=== PATIENT | female | born 1965 | race Asian ===

== ENCOUNTER 2016-07-28 13:43 | Emergency (ER) | payer OTHER ==
[~2016-07-28] VITALS: Ht 154.9 cm; Wt 63.6 kg
[2016-07-28] MEDS ORDERED: ATOR10TA84 PO (14:03)
[2016-07-28] MEDS ORDERED: GLIP5 PO (14:03)
[2016-07-28] MEDS ORDERED: METF500T4 PO (14:03)
[2016-07-28 14:26] LABS: BASOPHILS % (AUTO) 0.5 % (0.0-2.0); EOSINOPHILS % (AUTO) 2.1 % (1.0-6.0); HEMATOCRIT 39.2 % (36-46); HEMOGLOBIN 12.7 g/dL (12.0-16.0); LYMPHOCYTES # (AUTO) 2.8 K/uL (1.0-4.8); MEAN CORPUSCULAR HEMOGLOBIN 27.2 pg (26.0-34.0); MEAN CORPUSCULAR HGB CONC 32.3 G/dL (31.0-37.0); MEAN CORPUSCULAR VOLUME 84 fL (80-100); MONOCYTES # (AUTO) 0.3 K/uL (0.1-1.0); MONOCYTES % (AUTO) 3.8 % (2.0-9.0); NEUTROPHILS # (AUTO) 4.3 K/uL (1.8-7.7); NEUTROPHILS % (AUTO) 56.6 % (40.0-70.0); PLATELET COUNT (AUTO) 231 K/uL (150-450); RED BLOOD CELL COUNT(AUTO) 4.65 MIL/uL (4.00-5.20); RED CELL DISTRIBUTION WIDTH 13.3 % (11.5-14.5); WHITE BLOOD COUNT (AUTO) 7.7 K/uL (4.5-11.0)
[2016-07-28] MEDS ORDERED: MECLIZINE HCL 25 MG TABLET PO ONE (14:30)
[2016-07-28] MEDS ORDERED: ONDANSETRON HCL 4 MG TABLET PO ONE (14:30)
[2016-07-28 14:40] LABS: ANION GAP 5 mmol/L (8-16); CALCIUM, TOTAL 8.7 mg/dL (8.8-10.5); CARBON DIOXIDE 30 mmol/L (22-29); CHLORIDE 103 mmol/L (98-107); CREATININE 1.16 mg/dL (0.60-1.30); GLOMERULAR FILTR. RATE CALC 49 mL/min (>60); POTASSIUM 4.3 mmol/L (3.5-5.1); SODIUM SERUM 138 mmol/L (136-145); UREA NITROGEN, BLOOD 10 mg/dL (7-18)
[2016-07-28 14:43] LABS: B-TYPE NATRIURETIC PEPTIDE 19 pg/mL (0-100)
[2016-07-28 15:05] LABS: ALANINE AMINOTRANSFERASE 33 U/L (12-78); ALBUMIN 3.5 g/dL (3.4-5.0); ASPARTATE AMINOTRANSFERASE 14 U/L (15-37); BILIRUBIN,TOTAL 0.3 mg/dL (0.1-1.0); CREATINE KINASE MB < 0.5 ng/mL (0-5); CREATINE KINASE, TOTAL 78 U/L (26-192)
[2016-07-28 15:13] LABS: APPEARANCE,URINE CLOUDY (CLEAR); GLUCOSE, URINE (UA) 500 mg/dL (NEGATIVE); KETONES,URINE NEGATIVE (NEGATIVE); LEUKOCYTE ESTERASE ,URINE SMALL (NEGATIVE); OCCULT BLOOD,URINE TRACE (NEGATIVE); PROTEIN,URINE NEGATIVE (NEGATIVE)
[2016-07-28 15:32] LABS: ADD UA MICROSCOPIC YES
[2016-07-28 15:46] LABS: GLUCOSE,POINT OF CARE 276 MG/DL (70-110)
[2016-07-28 15:49] LABS: RBC,URINE 0-2 /HPF (0-2); SQUAMOUS EPITHELIAL CELL,UR Moderate /LPF (None Seen)
[2016-07-28 16:52] VITALS: BP 110/72
== END 2016-07-28 16:55 | disposition home or self-care (01) ==
LOC: EMS 13:45
DX: H81.393 Other peripheral vertigo, bilateral (principal); I10 Essential (primary) hypertension; E11.65 Type 2 diabetes mellitus with hyperglycemia; N39.0 Urinary tract infection, site not specified; R51 Headache
CPT/HCPCS: 36415; 70450; 71010; 80053; 81001; 82550; 82553; 82962; 83880; 84484; 85025; 87077; 87086; 99285; Q0162; 93005

== ENCOUNTER 2016-12-23 16:06 | Emergency (ER) | payer OTHER ==
[~2016-12-23] VITALS: Ht 154.9 cm; Wt 71.8 kg
[~2016-12-23 16:06] MED LIST: ATOR10TA84 PO; GLIP5 PO; METF500T4 PO
[2016-12-23] MEDS ORDERED: GLIM4 PO (16:15)
[2016-12-23] MEDS ORDERED: MECL12.585 PO (16:15)
[2016-12-23 17:02] LABS: EOSINOPHILS % (AUTO) 0.4 % (1.0-6.0); HEMATOCRIT 36.4 % (36-46); HEMOGLOBIN 12.4 g/dL (12.0-16.0); LYMPHOCYTES # (AUTO) 1.5 K/uL (1.0-4.8); LYMPHOCYTES % (AUTO) 10.5 % (22.0-44.0); MEAN CORPUSCULAR HEMOGLOBIN 28.2 pg (26.0-34.0); MEAN CORPUSCULAR HGB CONC 34.1 G/dL (31.0-37.0); MEAN CORPUSCULAR VOLUME 83 fL (80-100); MONOCYTES # (AUTO) 0.2 K/uL (0.1-1.0); MONOCYTES % (AUTO) 1.2 % (2.0-9.0); NEUTROPHILS # (AUTO) 12.8 K/uL (1.8-7.7); PLATELET COUNT (AUTO) 207 K/uL (150-450); RED CELL DISTRIBUTION WIDTH 12.8 % (11.5-14.5); WHITE BLOOD COUNT (AUTO) 14.6 K/uL (4.5-11.0)
[2016-12-23 17:18] LABS: NEUTROPHILS % (AUTO) 87.9 % (40.0-70.0)
[2016-12-23 17:41] LABS: RBC MORPHOLOGY COMMENT NORMAL RBC MORPH
[2016-12-23 17:48] LABS: CALCIUM, TOTAL 8.5 mg/dL (8.8-10.5); CREATININE 1.06 mg/dL (0.60-1.30); POTASSIUM 3.3 mmol/L (3.5-5.1)
[2016-12-23 17:54] LABS: ALBUMIN 2.7 g/dL (3.4-5.0); BILIRUBIN,TOTAL 0.6 mg/dL (0.1-1.0); TOTAL PROTEIN, SERUM 7.8 g/dL (6.4-8.2)
[2016-12-23 18:20] LABS: APPEARANCE,URINE CLOUDY (CLEAR); GLUCOSE, URINE (UA) NEGATIVE (NEGATIVE); KETONES,URINE NEGATIVE (NEGATIVE); LEUKOCYTE ESTERASE ,URINE MODERATE (NEGATIVE); OCCULT BLOOD,URINE MODERATE (NEGATIVE); PROTEIN,URINE SEE CONFIRM (NEGATIVE)
[2016-12-23 18:32] LABS: ADD UA MICROSCOPIC YES
[2016-12-23 18:45] LABS: SQUAMOUS EPITHELIAL CELL,UR Few /LPF (None Seen); SULFOSALICYLIC ACID,URINE 1+ (Negative)
[2016-12-23] MEDS ORDERED: MORPHINE SULFATE 4 MG/ML SYRINGE IVP ONE (18:45)
[2016-12-23] MEDS ORDERED: ONDANSETRON HCL 4 MG/2 ML VIAL IVP ONE (18:45)
[2016-12-23] MEDS ORDERED: SODIUM CHLORIDE 0.9% 1,000 ML IV ONE ×2 (18:45→21:30)
[2016-12-23] MEDS ORDERED: CIPROFLOXACIN HCL 250 MG TABLET PO ONE (21:00)
[2016-12-23] MEDS ORDERED: PHENAZOPYRIDINE HCL 100 MG TABLET PO ONE (21:00)
[2016-12-23] MEDS ORDERED: KETOROLAC TROMETHAMINE 30 MG/ML VIAL IVP ONE (21:00)
[2016-12-23] MEDS ORDERED: POTASSIUM CHLORIDE 20 MEQ ER TABLET PO ONE (21:00)
[2016-12-23] MEDS ORDERED: ACETAMINOPHEN 500 MG TABLET PO ONE (21:00)
[2016-12-23] MEDS ORDERED: HYDROCODONE/ACETAMINOPHEN 5-325 MG TABLET PO ONE (21:45)
[2016-12-23 23:29] VITALS: BP 106/67
[2016-12-24 09:05] LABS: GLUCOSE,POINT OF CARE 243 MG/DL (70-110)
== END 2016-12-23 23:32 | disposition home or self-care (01) ==
LOC: EMS 16:08
DX: N12 Tubulo-interstitial nephritis, not specified as acute or chronic (principal); E11.9 Type 2 diabetes mellitus without complications
CPT/HCPCS: 36415; 72131; 74176; 80053; 81001; 82962; 84703; 85025; 87077; 87086; 87186; 96361; 96374; 96375; 99285; J1885; J2270; J2405; J7030